=== PATIENT | male | born 1995 | race Caucasian/White ===

== ENCOUNTER 2017-03-21 15:30 | Emergency (ER) | payer SELFPAY ==
[~2017-03-21] VITALS: Ht 193 cm; Wt 108.9 kg
--- OUTSIDE RECORDS SUMMARY | 2017-03-21 15:35 | External Medical Summary Rpt | CCD ---
Author Author JANEE Address Unknown Phone Purpose Continuity of Care Document - 08-28-2014 through 2016
--- OUTSIDE RECORDS SUMMARY | 2017-03-21 15:35 | External Medical Summary Rpt | CCD ---
Author Author JANEE Address Unknown Phone [email or web address] Purpose Continuity of Care Document - 08-28-2014 through 2016
--- OUTSIDE RECORDS SUMMARY | 2017-03-21 15:36 | External Medical Summary Rpt | CCD ---
Author Author , JANEE Organization JANEE Address Unknown Phone [email or web address] Immunization Name Date Rout CVX Reac Dose Comm Prov Is Faci e tion ent ider Refu lity Give sed n Hep 07-2 8 999 Hist H159 No H159 B, 4-19 oric A A ped/ 96 al adol Info rmat ion - Sour ce Unsp ecif ied DTP- 04-2 22 999 Hist H181 No H181 Hib 6-19 oric 96 al Info rmat ion - Sour ce Unsp ecif ied Go 04-2 2 999 Hist H181 No H181 o-OP 6-19 oric V 96 al Info rmat ion - Sour ce Unsp ecif ied Go 03-0 2 999 Hist H181 No H181 o-OP 5-19 oric V 96 al Info rmat ion - Sour ce Unsp ecif ied DTP- 03-0 22 999 Hist H181 No H181 Hib 5-19 oric 96 al Info rmat ion - Sour ce Unsp ecif ied
--- OUTSIDE RECORDS SUMMARY | 2017-03-21 15:36 | External Medical Summary Rpt | CCD ---
Author Author , JANEE Organization JANEE Address Unknown Phone [email or web address] Immunization Name Date Rout CVX Reac Dose [...]
--- OUTSIDE RECORDS SUMMARY | 2017-03-21 15:36 | External Medical Summary Rpt ---
Author Author JYOTSNAGHASSAN Clemons, JANEE [employer] Organization [employer] Address Unknown Phone Unavailable Results XR ANKLE LEFT AP LATERAL AND OBLIQUE Observa Value Referen Units Interpr Notes Date tion ce etation Range \.br\XR No No No No Sep 6 ANKLE informa informa informa informa 2016 LEFT AP tion in tion in tion in tion in 6:59 PM source source source source LATERAL data data data data AND OBLIQUE 7 6:59 PM\.br\ \.br\Cl inical: -ANKLE INJURY\ .br\\.b r\\.br\ Finding s: Marked soft tissue swellin g overlie s the lateral malleol us. No\.br\ fractur e disloca tion. Joint mortise is symmetr ic.\.br \\.br\I MPRESSI ON:\.br \Soft tissue swellin g but no acute bony abnorma lity.\. br\ EK EKG 12 LEAD Observa Value Referen Units Interpr Notes Date ti ce etation Range Station No No No No October 09 earlene ECG informa informa informa informa 2015 tion in tion in tion in tion in 1:44 PM Study\. source source source source br\St. data data data data [facility] [facility]\.br\I nterpre tive Stateme nts\.br \SINUS BRADYCA RDIA WITH SINUS ARRHYTH BERENICE\.br \NO PRIOR ECG FOR COMPARI SON\.br \Electr onicall y Signed On 10-11-19 16 9:01:16 EDT by Manolo Soriano MD XR HAND RIGHT PA LATERAL AND OBLIQUE Observa Value Referen Units Interpr Notes Date ti ce etation Range \.br\XR No No No No Jun 09 HAND informa informa informa informa 2015 RIGHT tion in tion in tion in tion in 8:02 PM PA source source source source LATERAL data data data data AND OBLIQUE 06/09/19 16 8:02 PM\.br\ \.br\CL INICAL: -HAND INJURY\ .br\\.b r\Emeka rison: None\.b r\\.br\ FINDING S: There is an oblique fractur e through the distal shaft of the\.br \fifth\ .br\nec k carpal extendi ng to the neck. There is promine nt volar angulat ion. It\.br\ is\.br\ relativ ada nondisp laced fractur e. No other fractur es certifi ed.\.br \\.br\I MPRESSI ON: Oblique relativ ada nondisp laced fractur e involvi ng the distal\ .br\sha ft\.br\ and neck of the fifth metacar pal with promine nt volar angulat ion.\.b r\ XR ANKLE RIGHT AP LATERAL AND OBLIQUE Observa Value Referen Units Interpr Notes Date tion ce etation Range XR No No No No Aug 28 ANKLE informa informa informa informa 2014 RIGHT tion in tion in tion in tion in 12:17 AP source source source source PM LATERAL data data data data AND OBLIQUE Aug 28, 2014 12:17:3 2 PM\.br\ \.br\HI STORY: -ANKLE INJURY. \.br\\. br\Anibal ed lateral soft tissue swellin g. Ankle mortise is widened mediall y.\.br\ There is a questio n of\.br\ a fractur e involvi ng the dome of the talus along its medial aspect. \.br\\. br\IMPR ESSION: Disrupt ed ankle mortise . Suspici on of a fractur e involvi ng the\.br \dome of the talus is\.br\ along its medial aspect.
--- OUTSIDE RECORDS SUMMARY | 2017-03-21 15:36 | External Medical Summary Rpt | CCD ---
Author Author [employer] Organization [employer] Address Unknown Phone Unavailable Purpose Continuity of Care Document - through 2016
[2017-03-21 15:57] VITALS: BP 151/88
[2017-03-21 15:57] LABS: UTC STREP SCREEN NOT DETECTED (NOTDETECTED)
[2017-03-21] MEDS ORDERED: MEDROL 4MG. DOSE4 MG PO (16:09)
[2017-03-21] MEDS ORDERED: BROMFED DM COU118 ML PO (16:09)
--- NOTE | 2017-03-21 16:10 | Urgent Treatment Center Report ---
History of Present Issue Date/Time Seen by Provider 03/21/17 1550 Visit Reason Pt arrived:Walked Presenting Problem:SORE THROAT, H/A COUGH X 3 DAYS Location if Accident: Onset of symptoms date/time:/ or onset unknown for:MEDICAL HX UNKNOWN Have you (or family members/close friends) recently traveled outside the [place]? N If Yes, where/when: Have you had exposure to infectious disease within the past month? TB? Other? Specify: c/o sore throat. Thinks he has strep. Sore throat w/ headache, rhinorrhea, productive cough, clear sputum. Denies SOA. Possible wheezing. + tobacco abuse. No fever, aches, chills. No known sick contacts. "Lots of drainage from my nose to my throat". Source patient Exam Limitations no limitations ALLERGIES Coded Allergies: No Known Allergies (03/21/17) History Medical History General CAD? No Angina: No MN: No Hypertension? No Hyperlipidemia? No CHF? No DVT? No PE? No COPD? No Asthma? No Anemia? No GERD? No Gastric ulcers? No GI Bleed? No Hernia? No Thyroid Problems? No Hypothyroidism? No CVA? No Seizures? No Diabetes? No Renal Insuffiency? No UTI? No Stones? No BPH? No GB Disease: No Nephritic Syndrome? No Asplenia? No Hepatitis? No Sickle Cell Disease? No Arthritis? No Migraines? No Cataracts? No Glaucoma? No MRSA? No HIV? No TB? No Anxiety? No Depression? No Cancer? No Site: N More? No Immunization HX DT/Tetanus Unknown Surgical Hx Previous Surgery?N Social History Smoking Hx Smoker: Current Every Day Smoker Tobacco: Yes Type Cigarettes Alcohol Alcohol: No Review of Systems All Other Systems Reviewed and Negative Constitutional see HPI Eyes denies drainage ENT see HPI, nose congestion, throat pain (worse first thing in morning). denies: ear pain ((fullness)), ear discharge, throat swelling. Respiratory see HPI Cardiovascular denies chest pain, denies palpitations Gastrointestinal denies no symptoms reported Musculoskeletal denies joint pain Skin denies rash Psychiatric/Neurological denies other (dizziness) Physical Exam Vital Signs Vital Signs Date Time Temp Pulse Resp B/P Pulse O2 O2 Flow FiO2 Ox Delivery Rate 03/21 1557 98.0 70 20 151/88 99 03/21 1550 98.0 70 20 151/88 99 General Appearance normal appearance, no apparent distress Eye Exam - bilateral eye normal exam Ear, Nose, Throat normal ENT inspection (x/ clear PND) Neck non-tender, supple Respiratory Status Yes: trachea midline, chest symmetrical, non productive cough (once throughout visit/waiting). No: respiratory distress, use of accessory muscles, pain on inspiration, pain on expiration. Lung Sounds bilateral: wheezing (faint, end expiratory, apices). Cardiovascular regular rate/rhythm, no peripheral edema, no murmur Neurologic alert, oriented x 3 Skin normal color, warm/dry Lymphatic no adenopathy Medical Decision Making LABS/Meds/Orders Pt receiving controlled substance in ED? No Results/Orders Laboratory Tests 03/21/17 1554: Influenza Type A Ag NOT DETECTED, Influenza Type B Ag NOT DETECTED, Group A Strep Screen NOT DETECTED Orders Procedure Date/time Status [facility] STREP SCREEN 03/21 1554 Complete UTC FLU A,B 03/21 1554 Complete Departure Departure Time of Disposition 1605 Disposition DC Home or Self Care(routine) Clinical Impression Primary Impression: Viral upper respiratory illness Secondary Impressions: Tobacco abuse, Wheezing on auscultation Condition STABLE Referrals NO REFERRAL IMMEDIATELY for new or worsening symptoms OR no noticeable improvement over the next 48-72 hours. 911 for difficulty breathing. Patient Instructions DI for Viral Upper Respiratory Infection -- Adult, How to Quit Tobacco Products Additional Instructions * STOP SMOKING!!!! * The effects of smoking are NOT reversible and once the damage is done, it can' t be corrected. STOP now. * No sign of bacterial infection. Likely viral. Virus can take 7-14 days to run their course * Monitor Temp. Tylenol every 4 hours as needed no more then 5 times a day or 4000mg in 24 hours and/or ibuprofen every 6 hours as needed no more then 3200mg in 24 hours (as long as your primary care doctor has told you that it is ok to take both) for fever/aches/pain. ER if fever no less than 101 despite tylenol and ibuprofen * Encourage fluids, water, gatorade, powerade, pedialyte if /toddler/child * warm salt water gargles * warm fluids * sore throat lozenges * sleep elevated * humidifier/vaporizer * Bromfed may cause drowsiness. Know how it effects you (or your child) before driving, caring for small children, or sending your child to school. No other antihistamines/allergy medications while taking bromfed. * * Your throat swab was sent for culture. Those results are typically sent to your primary care. Be sure to follow up in 2-3 days if no improvement so they can review those results and treat if necessary. If you don't have primary care, I recommend you get one but in the mean time, you will have to return to a walk in clinic. * Start steroid today. Helps with inflammation therefore, cough and wheezing. Follow directions on package. Rvwd side effects. Pt reports they have taken them before Discharge Counseling Counseled pt/family regarding diagnosis, test results, medications/RX, home care, follow up needs Prescriptions Current Visit Scripts D-METHORPHAN HB/P-EPD HCL/BPM (Bromfed Dm Cough Syrup) 10 ML PO QIDP PRN cough #240 ML Methylprednisolone (Medrol Dose Zachary) 4 MG PO UD #1 ZACHARY TAKE DIRECTED ON PACKAGING at [id number]
== END 2017-03-21 16:10 | disposition home or self-care (01) ==
LOC: UTC 15:30
PROVIDERS: Nurse Practitioner Family
DX: J06.9 Acute upper respiratory infection, unspecified (principal); F17.210 Nicotine dependence, cigarettes, uncomplicated